=== PATIENT | female | born 1995 | race Caucasian/White ===

== ENCOUNTER 2023-11-13 23:06 | Emergency (ER) | payer SELFPAY ==
[2023-11-13 23:09] VITALS: BP 116/74; BMI 20.9
--- NOTE | 2023-11-14 00:04 | ED.GENMED ---
History of Present Illness
General
Chief Complaint: Musculo-Skeletal Complaint
Source: patient and police
Exam Limitations: none
Time Seen by Provider: 11/13/23 23:59
Travel History
Have you had any contact with someone who has COVID-19?: No
Do you have any symptoms of coronavirus? Fever > 100 degrees, chills, cough, shortness of breath, sore throat, loss of taste or smell, muscle aches, or headache?: No
History of Present Illness
History of Present Illness:
See MDM
Past History
Past History
ED Past Medical History: None
ED Past Surgical History: None
Social History
Alcohol: None
Drug: Narcotics
Phy Exam
Physical Exam
Physical Exam:
See MDM
Course
Orders/Labs/Results
Orders:
Orders
11/13/23 23:24
Electrocardiogram (*1) Urgent
Reason for Study: Chest Pain
EKG- Treatment ONCE
Chest [CR Chest - 2 Views ] Urgent
Comment:
Reason For Exam: cp
Vital Signs
Initial and Last Documented VS:
Initial Vital Signs
Temp Pulse Resp BP Pulse Ox
99 F 92 18 116/74 99
11/13/23 23:09 11/13/23 23:09 11/13/23 23:09 11/13/23 23:09 11/13/23 23:09
Last Documented Vital Signs
Temp Pulse Resp BP Pulse Ox
99 F 92 18 116/74 99
11/13/23 23:09 11/13/23 23:09 11/13/23 23:09 11/13/23 23:09 11/13/23 23:09
MDM/Problems Addressed
Differential Diagnosis Includes:
HPI and MDM Narrative:
28-year-old female [facility]. Patient was arrested but declined by the halfway with concern that she could be going through narcotic withdrawal. Patient admits to taking fentanyl yesterday.
Went into the room, patient is lying comfortably under her jacket. Patient shows no evidence of active withdrawal. She complains of left lateral chest pain which she attributes to recent cough and. There is mild intercostal muscular tenderness.
No leg edema
Physical exam
General: Well appearing and non-toxic. Lying comfortably in bed
HEENT: protecting airway
Neck: appears supple
CV: No evidence of cyanosis. No murmur
Resp: No accessory muscle use. Lungs clear
Chest: Reproducible tenderness to palpation of intercostal musculature
Abd: Non-distended
Extremities: No deformities. No leg edema or tenderness
Neuro: alert
Psych: Normal affect
Skin: Intact
Problems Addressed including Acute and Chronic Conditions affecting care:
1. Chest pain
Acuity: acute
Prognosis: stable
Details: Likely in the setting of muscle strain from coughing. EKG nonischemic and chest x-ray clear
Differential Diagnosis (but not limited to): Muscle spasm, pneumothorax
Testing considered: D-dimer but there is no clinical evidence of DVT
Drug therapy (if applicable): OTC meds, please see d/c instruction regarding Rx drugs
Amount and/or Complexity of Data Reviewed
Clinical info obtained from: Patient
External data reviewed: N/A
Labs I independently reviewed (but not limited to): N/A
Radiology: X-ray independently reviewed: Chest x-ray clear
Pulse Ox: not hypoxic
EKG independently reviewed: Sinus rhythm, normal axis, no STEMI
Senior Research Fellow: N/A
Critical Care: N/A
Risk of Complication:
Social Determinants of health: Good social support
Discussed with other providers: N/A
Escalation of Care includes Admit/Obs: Patient medically cleared for incarceration
Occasional wrong word or 'sound a like' substitutions may have occurred due to the inherent limitations of voice recognition software. Read the chart carefully and recognize, using context, where substitutions have occurred.
*Critical Care Note
Total Time (30-74mins, 75-104mins- exclusive of procedures): Not Applicable
ED Attending Note
-
Portions of this chart may have been created with voice recognition software.� Occasional wrong word or��sound alike� substitutions may have occurred due to the inherent limitations of voice recognition software.
Discharge Plan
Departure
Patient Disposition: [facility]
Date of Disposition: 11/14/23
Time of Disposition: 00:07
Patient with high blood pressure during this ER visit?: No
Discharge Problem:
Chest pain
Instructions: Chest Pain (DC)
Activity Restrictions/Additional Instructions:
Lala Fisher is medically cleared and stable for incarceration.
Interventions
Interventions:
*Risk Screen - Suicide Last Done: 11/13/23 23:09
*General Assessment Last Done: 11/13/23 23:09
*Neglect/Abuse Screening Last Done: 11/13/23 23:09
*ED COVID-19 Vaccine History Last Done: 11/13/23 23:09
ED-Musculoskeletal Assessment Last Done: 11/13/23 23:10
== END 2023-11-14 00:23 ==
LOC: EMR 23:06
PROVIDERS: EMERGENCY PHYSICIAN Student in an Organized Health Care Education/Training Program
DX: R07.89 Other chest pain (principal)
CPT/HCPCS: 99283; 71046; 93005